=== PATIENT | female | born 1935 | race Caucasian/White ===

== ENCOUNTER 2017-07-23 09:31 | Inpatient (IN) | payer OTHER ==
[~2017-07-23] VITALS: Ht 160 cm; Wt 88.0 kg
[~2017-07-23 09:31] MED LIST: ACET325 PO; ACET500 PO; ALLERGY RELIEF10 MG PO; ALLO100 PO; AMIO200 PO; AMIODARONE HCL100 MG PO; AMOCLA500 PO; ASCO500 PO; ASPI81CH PO; ATOR10; AZIT250 PO; Anti-Diarrheal2 M1 PO; Aspir 8181 MG PO; BENICAR; BUME2 PO; CARV25; CLOP75 PO; COLC.6 PO; COLCRYS PO; CYCL0.05OP BOTHEYES; Cipro500 MG PO; Coumadin5 MG PO; DIGO.125 PO; DIGO.25; DIPATR PO; DOCU100 PO; FURO20; FURO20 PO; FURO40; FURO40 PO; Ferrex 150 For1 EACH PO; Ferrous Sulfat325 M2 PO; Flonase 0.05% N16 GM INH; GABA100 PO; GLIM2 PO; GLIP2.5ER PO; GLIP5; GUAPHELA PO; HEMOTC PR; HYDACE5 PO; HYDR1TAB94 PO; Hair, Skin & N1 EACH PO; INS70/30PN; INS70/30PN SC; INSU100I6 SC; INSUASPI SUBQ; INSULANI; INSULANI SC; INSULANPEN SC; ISOMON20 PO; Isosorbide Dini30 MG PO; LAVAP17G PO; LEVOTHYROXINE PO; LEVSOD50 PO; LORA.5 PO; LOSA25 PO; Lisinopril2.5 MG PO; METF500; METF500C; METO2.5 PO; METO50ER PO; MIRALAX17 GM PO; MULTI VITAMIN1 EACH PO; Macrobid 100 M100 MG PO; NEBI5; NEBI5 PO; NITR2TO30 TOP; NITRSPRAY SL; NYST100P TOP; Nitro-Dur1 EACH TD; Norco 5-325 Ta1 EACH PO; OMEP20ER PO; OXYC10TA19; OXYC10TA19 PO; Oxycodone-Apap1 EAC3 PO; PANT40 PO; PARI1 PO; RANO500T PO; Requip0.5 MG PO; SENN187 PO; SERT50 PO; SIMV10 PO; SIMV40 PO; SPIR25; SPIR25 PO; SPORTSCREME TOP; TORSE20 PO; TOUJEO SOL300 UNIT/1 SC; TRADJENTA5 MG; TRADJENTA5 MG PO; WARF4; WARF5; WARF5 PO; Zantac150 MG PO; Zofran Odt4 MG PO; Zofran4 MG PO; [UNRECOGNIZED DRUG - OTHER] TP
[2017-07-23 10:49] LABS: BASOPHILS ABSOLUTE AUTO 0.03 K/mm3 (0.00-0.23); BASOPHILS PERCENT AUTO 0 % (0-2); EOSINOPHILS ABSOLUTE AUTO 0.82 K/mm3 (0.00-0.68); EOSINOPHILS PERCENT AUTO 12 % (0-6); Hematocrit 33.5 % (33.0-51.0); Hemoglobin 9.9 g/dL (11.5-16.0); IMMATURE GRAN ABSOLUTE AUTO 0.03 K/mm3 (0.00-0.10); IMMATURE GRAN PERCENT AUTO 0 % (0-1); LYMPHOCYTES ABSOLUTE AUTO 1.12 K/mm3 (0.84-5.20); LYMPHOCYTES PERCENT AUTO 17 % (21-46); MONOCYTES ABSOLUTE AUTO 0.57 K/mm3 (0.16-1.47); MONOCYTES PERCENT AUTO 9 % (4-13); Mean Corpuscular HGB 31.1 pg (26.0-34.0); Mean Corpuscular HGB Conc 29.6 g/dL (31.5-36.5); Mean Corpuscular Volume 105 fL (80-100); Mean Platelet Volume 12.5 fL (9.1-12.4); NEUTROPHILS ABSOLUTE AUTO 4.15 K/mm3 (1.96-9.15); NEUTROPHILS PERCENT AUTO 62 % (41-73); NRBC ABSOLUTE 0.06 K/mm3 (0.00-0.02); NRBC Auto 0.9 /100 WBC (0.0-0.2); Platelet Count 165 K/mm3 (150-400); RDW Coefficient Variation 22.8 % (11.7-14.2); RDW Standard Deviation 87.1 fL (35.1-46.3); Red Blood Cell Count 3.18 M/mm3 (3.80-5.20); White Blood Cell Count 6.72 K/mm3 (4.00-11.30)
[2017-07-23 10:52] LABS: Troponin I 0.021 ng/mL (0.000-0.040)
[2017-07-23 10:53] LABS: Albumin, Blood 2.7 g/dL (3.4-5.0); Albumin/Globulin Ratio 0.7 (0.8-1.8); Bilirubin, Total 0.8 mg/dL (0.1-1.0); Bun/Creatinine Ratio 27.1 (12.0-20.0); Calcium, Blood 8.9 mg/dL (8.5-10.1); Creatinine, Blood 3.21 mg/dL (0.40-1.00); Globulin, Blood 4.1 g/dL (2.2-4.0); Potassium, Blood 4.8 mmol/L (3.5-5.5); Total Protein, Blood 6.8 g/dL (6.4-8.2)
[2017-07-23 11:13] LABS: Source, Urine Catheter
[2017-07-23 11:16] LABS: Bilirubin, Urine Neg (Neg); Blood, Urine Neg (Neg); Glucose Qualitative, Urine Neg (Neg); Ketones, Urine Neg (Neg); Leukocyte Esterase, Urine 2+ (Neg); Nitrite, Urine Neg (Neg); Protein, Urine 1+ (Neg); Urobilinogen, Urine NORM (Normal)
[2017-07-23 11:21] LABS: Appearance, Urine Clear (Clear); Color, Urine Yellow (P-Yellow)
[2017-07-23 11:29] LABS: Bacteria Few /hpf; Squamous Epithelial Cells Few /hpf (Few)
[2017-07-23 11:30] LABS: Hyaline Casts 0-2 /lpf (0-2); Transitional Epithelial Cells Few /hpf (0-Rare)
[2017-07-23] MEDS ORDERED: METO2.5 PO (14:21)
[2017-07-23] MEDS ORDERED: ONDA4 PO (14:31)
[2017-07-23] MEDS ORDERED: CALDYPHEN CLEA TOP (14:32)
[2017-07-23] MEDS ORDERED: LOPE2C PO (14:33)
[2017-07-23] MEDS ORDERED: Milk Of Ma400 MG/5 M PO (14:34)
[2017-07-23] MEDS ORDERED: NITR.4SL SL (14:35)
[2017-07-24 05:48] LABS: Calcium, Blood 8.4 mg/dL (8.5-10.1); Creatinine, Blood 3.18 mg/dL (0.40-1.00); Potassium, Blood 4.3 mmol/L (3.5-5.5)
[2017-07-25 05:55] LABS: Bun/Creatinine Ratio 27.5 (12.0-20.0); Calcium, Blood 8.4 mg/dL (8.5-10.1); Creatinine, Blood 3.2 mg/dL (0.40-1.00); Potassium, Blood 4.4 mmol/L (3.5-5.5)
[2017-07-26 06:26] LABS: Calcium, Blood 8.4 mg/dL (8.5-10.1); Creatinine, Blood 2.91 mg/dL (0.40-1.00); Magnesium, Blood 2.2 mg/dL (1.6-2.4); Phosphorus, Blood 4.4 mg/dL (2.5-4.9); Potassium, Blood 4.3 mmol/L (3.5-5.5)
[2017-07-26 06:33] LABS: Thyroid Stimulating Hormone 4.19 uIU/mL (0.360-4.800); Thyroxine (T4) 8.3 ug/dL (4.8-13.9); Triiodothyronine, Free 1.8 pg/mL (2.18-3.98)
[2017-07-26 07:13] LABS: BASOPHILS ABSOLUTE AUTO 0.03 K/mm3 (0.00-0.23); BASOPHILS PERCENT AUTO 1 % (0-2); EOSINOPHILS ABSOLUTE AUTO 0.77 K/mm3 (0.00-0.68); EOSINOPHILS PERCENT AUTO 12 % (0-6); Hematocrit 33.4 % (33.0-51.0); Hemoglobin 10.1 g/dL (11.5-16.0); IMMATURE GRAN ABSOLUTE AUTO 0.02 K/mm3 (0.00-0.10); IMMATURE GRAN PERCENT AUTO 0 % (0-1); LYMPHOCYTES ABSOLUTE AUTO 1.32 K/mm3 (0.84-5.20); LYMPHOCYTES PERCENT AUTO 21 % (21-46); MONOCYTES ABSOLUTE AUTO 0.63 K/mm3 (0.16-1.47); MONOCYTES PERCENT AUTO 10 % (4-13); Mean Corpuscular HGB 31.6 pg (26.0-34.0); Mean Corpuscular HGB Conc 30.2 g/dL (31.5-36.5); Mean Corpuscular Volume 104 fL (80-100); Mean Platelet Volume 12.5 fL (9.1-12.4); NEUTROPHILS ABSOLUTE AUTO 3.51 K/mm3 (1.96-9.15); NEUTROPHILS PERCENT AUTO 56 % (41-73); NRBC ABSOLUTE 0.02 K/mm3 (0.00-0.02); NRBC Auto 0.4 /100 WBC (0.0-0.2); Platelet Count 99 K/mm3 (150-400); RDW Standard Deviation 83.1 fL (35.1-46.3); White Blood Cell Count 6.28 K/mm3 (4.00-11.30)
[2017-07-27 06:05] LABS: Bun/Creatinine Ratio 36.5 (12.0-20.0); Calcium, Blood 8.4 mg/dL (8.5-10.1); Creatinine, Blood 2.6 mg/dL (0.40-1.00); Potassium, Blood 3.8 mmol/L (3.5-5.5)
[2017-07-28] MEDS ORDERED: IRON150C PO (08:58)
[2017-07-28] MEDS ORDERED: LIOT5 PO (08:58)
== END 2017-07-28 11:30 | DRG 291 ==
LOC: ER 09:31 → MEDS 12:19 → EDPENDDIS 07-28 08:30 → ENPENDDIS 07-28 08:30 → MEDS 07-28 11:30
PROVIDERS: Internal Medicine
DX: I13.2 Hypertensive heart and chronic kidney disease with heart failure and with stage 5 chronic kidney disease, or end stage renal disease (principal); J96.01 Acute respiratory failure with hypoxia; D61.818 Other pancytopenia; E11.21 Type 2 diabetes mellitus with diabetic nephropathy; E11.40 Type 2 diabetes mellitus with diabetic neuropathy, unspecified; N18.5 Chronic kidney disease, stage 5; I50.43 Acute on chronic combined systolic (congestive) and diastolic (congestive) heart failure; E11.319 Type 2 diabetes mellitus with unspecified diabetic retinopathy without macular edema; E11.22 Type 2 diabetes mellitus with diabetic chronic kidney disease; I48.2 Chronic atrial fibrillation; I25.10 Atherosclerotic heart disease of native coronary artery without angina pectoris; M10.9 Gout, unspecified; E03.9 Hypothyroidism, unspecified; I34.0 Nonrheumatic mitral (valve) insufficiency; R01.1 Cardiac murmur, unspecified; I25.2 Old myocardial infarction; D63.1 Anemia in chronic kidney disease; L89.899 Pressure ulcer of other site, unspecified stage; F41.9 Anxiety disorder, unspecified; Z95.1 Presence of aortocoronary bypass graft; Z95.5 Presence of coronary angioplasty implant and graft; Z86.010 Personal history of colon polyps; Z95.0 Presence of cardiac pacemaker; Z95.2 Presence of prosthetic heart valve; Z87.891 Personal history of nicotine dependence; Z88.8 Allergy status to other drugs, medicaments and biological substances; Z79.82 Long term (current) use of aspirin; Z79.4 Long term (current) use of insulin; G25.81 Restless legs syndrome; R53.81 Other malaise
CPT/HCPCS: 36415; 71020; 74020; 80048; 80053; 81001; 82947; 83735; 83880; 84100; 84436; 84443; 84481; 84484; 85025; 87086; 93005; 93010; 96374; 97110; 97163; 97530; 99285; G8978; G8979; J1650